=== PATIENT | male | born 1995 | race Caucasian/White ===

== ENCOUNTER 2024-10-25 01:56 | Emergency (ER) | payer SELFPAY ==
[2024-10-25 02:03] VITALS: BP 127/91; PULSE 93; TEMP 36.7; O2SAT 99; BMI 29.5
--- NOTE | 2024-10-25 02:34 | ED.EAR1 ---
HPI - Ear Problem General Chief complaint: Ear Stated complaint: GENERAL WEAKNESS Time Seen by Provider: 10/25/24 02:06 Source: patient Mode of arrival: walk-in Limitations: no limitations History of Present Illness HPI Narrative: This 29-year-old male presents for evaluation and concerns that he has a left ear infection. 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 His last ear surgery was ear tubes which have since fallen out. The patient recently relocated to this area from [facility]. He does not have a local physician. He states he has been having some head congestion and muffled sound in the left ear. He states he took a nap earlier today and when he woke up he felt like he had a fever and chills and had pain in his left ear. He denies any headache. He has no neck pain or stiffness. There has not been any drainage from the ear. He denies any dizziness nausea or vomiting. Related Data Allergies Allergy/AdvReac Type Severity Reaction Status Date / Time No Known Drug Allergies Allergy Verified 10/25/24 02:03 Review of Systems ROS Status of ROS 10 or more systems reviewed and unremarkable except as noted in history and below PFSH PFSH Social History Little interest or pleasure in doing things: not at all Feeling down, depressed, or hopeless: not at all Exam Narrative Exam Narrative: Vital signs and Nursing Notes reviewed: Patient is afebrile with a normal pulse, normal blood pressure, he is not hypoxic with pulse ox of 99% on room air General: Awake, alert, oriented, no acute distress, lying comfortably on the stretcher HEENT: Normocephalic atraumatic, mucous membranes are moist and pink, eyes are clear, normal conjunctiva, vision is grossly intact, posterior pharynx is normal in appearance. Right tympanic membrane is normal in appearance. Left tympanic membrane is markedly erythematous and bulging, no tympanic membrane perforation is noted Neck: Supple, no meningeal signs, no anterior or posterior cervical lymphadenopathy Chest: Lungs are clear to auscultation with good air entry, there is no wheezing rhonchi or rales appreciated no accessory muscle use, patient is speaking in complete sentences-no chest wall tenderness to palpation CVS: Regular rate and rhythm S1-S2, no murmurs rubs or gallops, pulses are brisk and equal bilaterally Skin: Normal in appearance without rash,pallor, petechiae or purpura Neuro: No focal deficits Constitutional Vital Signs, click to edit/add: Last Vital Signs Temp 98.1 F 10/25/24 02:03 Pulse 93 H 10/25/24 02:03 Resp 16 10/25/24 02:03 BP 127/91 10/25/24 02:03 Pulse Ox 99 10/25/24 02:03 O2 Del Method Room Air 10/25/24 02:03 Course Vital Signs Vital signs: Vital Signs Temperature 98.1 F 10/25/24 02:03 Pulse Rate 93 H 10/25/24 02:03 Respiratory Rate 16 10/25/24 02:03 Blood Pressure 127/91 10/25/24 02:03 Pulse Oximetry 99 10/25/24 02:03 Oxygen Delivery Method Room Air 10/25/24 02:03 Temperature 98.1 F 10/25/24 02:03 Pulse Rate 93 H 10/25/24 02:03 Respiratory Rate 16 10/25/24 02:03 Blood Pressure 127/91 10/25/24 02:03 Pulse Oximetry 99 10/25/24 02:03 Oxygen Delivery Method Room Air 10/25/24 02:03 Medical Decision Making MDM Narrative Medical decision making narrative: This 29-year-old male presents for evaluation and concerned that he has a left ear infection. He has a history of multiple ear infections and ear surgeries in the past. The last surgery he had was ear tubes placed in [facility] where he was formally living. He states he has had some muffled sounds in the left ear recently and after a nap today he woke up with fever, chills and pain in the left ear. His left ear is markedly erythematous and bulging consistent with acute otitis media. The patient states that he has had so many ear infections that the typical medications that are prescribed for ear infections do not work for him and he request something stronger than the usual medication. He was given a dose of Augmentin 875 in the emergency department as well as ibuprofen for pain and chills and discharged home with prescription for the same. He will be referred to Dr. Lopez ENT for further evaluation and treatment of his longstanding ear issues Discharge Plan Discharge Chief Complaint: Ear Clinical Impression: Otitis media Patient Disposition: Home, Self-Care Time of Disposition Decision: 02:23 Condition: Good Mode of Transportation: Private Vehicle Print Language: Upper Sorbian Instructions: Ear Infection (ED) Referrals: Liyah Lopez MD [Physician] - 1 week PhysicianNon-StaffMD [Primary Care Provider] - 1 week
[2024-10-25] MEDS: ACETAMINOPHEN 325 MG TABLET 650 MG PO (02:36)
[2024-10-25] MEDS: AMOXICILLIN/POT CLAV 875-125 MG TABLET 1 TAB PO (02:36)
[2024-10-25] MEDS: IBUPROFEN 600 MG TABLET PO (02:36)
--- NOTE | 2024-10-25 02:38 | ED_ITS ---
HPI - Ear Problem General Chief complaint: Ear Stated complaint: GENERAL WEAKNESS Time Seen by Provider: 10/25/24 02:06 Source: patient Mode of arrival: walk-in Limitations: no limitations History of Present Illness HPI Narrative: This 29-year-old male presents for evaluation and concerns that he has a left ear infection. 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 His last ear surgery was ear tubes which have since fallen out. The patient recently relocated to this area from [facility]. He does not have a local physician. He states he has been having some head congestion and muffled sound in the left ear. He states he took a nap earlier today and when he woke up he felt like he had a fever and chills and had pain in his left ear. He denies any headache. He has no neck pain or stiffness. There has not been any drainage from the ear. He denies any dizziness nausea or vomiting. Related Data Allergies Allergy/AdvReac Type Severity Reaction Status Date / Time No Known Drug Allergies Allergy Verified 10/25/24 02:03 Review of Systems ROS Status of ROS 10 or more systems reviewed and unremark able except as noted in history and below PFSH PFSH Social History Little interest or pleasure in doing things: not at all Feeling down, depressed, or hopeless: not at all Exam Narrative Exam Narrative: Vital signs and Nursing Notes reviewed: Patient is afebrile with a normal pulse, normal blood pressure, he is not hypoxic with pulse ox of 99% on room air General: Awake, alert, oriented, no acute distress, lying comfortably on the stretcher HEENT: Normocephalic atraumatic, mucous membranes are moist and pink, eyes are clear, normal conjunctiva, vision is grossly intact, posterior pharynx is normal in appearance. Right tympanic membrane is normal in appearance. Left tympanic membrane is markedly erythematous and bulging, no tympanic membrane perforation is noted Neck: Supple, no meningeal signs, no anterior or posterior cervical lymphadenopathy Chest: Lungs are clear to auscultation with good air entry, there is no wheezing rhonchi or rales appreciated no accessory muscle use, patient is speaking in co mplete sentences-no chest wall tenderness to palpation CVS: Regular rate and rhythm S1-S2, no murmurs rubs or gallops, pulses are brisk and equal bilaterally Skin: Normal in appearance without rash,pallor, petechiae or purpura Neuro: No focal deficits Constitutional Vital Signs, click to edit/add: Last Vital Signs Temp 98.1 F 10/25/24 02:03 Pulse 93 H 10/25/24 02:03 Resp 16 10/25/24 02:03 BP 127/91 10/25/24 02:03 Pulse Ox 99 10/25/24 02:03 O2 Del Method Room Air 10/25/24 02:03 Course Vital Signs Vital signs: Vital Signs Temperature 98.1 F 10/25/24 02:03 Pulse Rate 93 H 10/25/24 02:03 Respiratory Rate 16 10/25/24 02:03 Blood Pressure 127/91 10/25/24 02:03 Pulse Oximetry 99 10/25/24 02:03 Oxygen Delivery Method Room Air 10/25/24 02:03 Temperature 98.1 F 10/25/24 02:03 Pulse Rate 93 H 10/25/24 02:03 Respiratory Rate 16 10/25/24 02:03 Blood Pressure 127/91 10/25/24 02:03 Pulse Oximetry 99 10/25/24 02:03 Oxygen Delivery Method Room Air 10/25/24 02:03 Medical Decision Making MDM Narrative Medical decision making narrative: This 29-year-old male presents for evaluation and concerned that he has a left ear infection. He has a history of multiple ear infections and ear surgeries in the past. The last surgery he had was ear tubes placed in [facility] where he was formally living. He states he has had some muffled sounds in the left ear recently and after a nap today he woke up with fever, chills and pain in the left ear. His left ear is markedly erythematous and bulging consistent with acute otitis media. The patient states that he has had so many ear infections that the typical medications that are prescribed for ear infections do not work for him and he request something stronger than the usual medication. He was given a dose of Augmentin 875 in the emergency department as well as ibuprofen for pain and chills and discharged home with prescription for the same. He will be referred to Dr. Lopez ENT for further evaluation and tr eatment of his longstanding ear issues Discharge Plan Discharge Chief Complaint: Ear Clinical Impression: Otitis media Patient Disposition: Home, Self-Care Time of Disposition Decision: Condition: Good Mode of Transportation: Private Vehicle Print Language: Pakistani Instructions: Ear Infection (ED) Referrals: Liyah Lopez MD [Physician] - 1 week PhysicianNon-StaffMD [Primary Care Provider] - 1 week
--- NOTE | 2024-10-25 13:00 | PC.NURSE ---
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
== END 2024-10-25 02:39 | disposition home or self-care (01) ==
PROVIDERS: Emergency Provider Emergency Medicine
DX: H66.92 Otitis media, unspecified, left ear (principal)
CPT/HCPCS: 99284